=== PATIENT | male | born 1930 | race Caucasian/White ===

== ENCOUNTER → 2016-11-26 | Outpatient (CLI) | payer MEDICARE, OTHER | END | disposition home or self-care (01) | LOC: CVU 13:03 | PROVIDERS: ATTEND Physician Assistant Medical | DX: I82.431 Acute embolism and thrombosis of right popliteal vein (principal); I82.4Z1 Acute embolism and thrombosis of unspecified deep veins of right distal lower extremity; I87.8 Other specified disorders of veins | CPT/HCPCS: 93970 ==

== ENCOUNTER → 2016-12-30 | Outpatient (CLI) | payer MEDICARE, OTHER | END | disposition home or self-care (01) | LOC: WOUND 09:15 | PROVIDERS: ATTEND Internal Medicine | DX: I89.0 Lymphedema, not elsewhere classified (principal); I25.10 Atherosclerotic heart disease of native coronary artery without angina pectoris; I10 Essential (primary) hypertension; E78.5 Hyperlipidemia, unspecified; Z87.891 Personal history of nicotine dependence | CPT/HCPCS: G0463; WOU0463 ==

== ENCOUNTER → 2017-01-19 | Outpatient (CLI) | payer MEDICARE, OTHER | END | disposition home or self-care (01) | LOC: CVU 15:28 | PROVIDERS: ATTEND Internal Medicine | DX: I70.293 Other atherosclerosis of native arteries of extremities, bilateral legs (principal); I89.0 Lymphedema, not elsewhere classified; I10 Essential (primary) hypertension; I25.2 Old myocardial infarction; Z87.891 Personal history of nicotine dependence | CPT/HCPCS: 93922; 93925 ==

== ENCOUNTER 2017-05-06 10:46 | Observation (INO) | payer MEDICARE, OTHER ==
[2017-05-05 13:23] LABS: HEMATOCRIT 43.1 % (39.2-51.8); HEMOGLOBIN 14.5 g/dL (13.7-18.0); WHITE BLOOD COUNT 10.9 x10^3/uL (3.4-10)
[2017-05-05 13:35] LABS: BLOOD UREA NITROGEN 19 mg/dL (7-18)
[2017-05-05 14:41] VITALS: BP 156/75
[~2017-05-06] VITALS: Ht 182.9 cm; Wt 88.2 kg
[~2017-05-06 10:46] MED LIST: ASPI-496 PO; ATOR10TA PO; CARV3.122 PO; CYAN25003 PO; DOCU-180 PO; FURO20TA3 PO; POTA10TA31 PO; VALS80TA3 PO
[2017-05-06] MEDS: SODIUM CHLORIDE 0.9% 1,000 ML IV SCH ×2 (11:06→20:57)
[2017-05-06] MEDS ORDERED: VANCOMYCIN PMX 1GM/200ML 200 ML IVPB SCH (11:30)
[2017-05-06] MEDS ORDERED: VANCOMYCIN PMX 1GM/200ML 200 ML ONE (13:05)
[2017-05-06] MEDS ORDERED: VANCOMYCIN 500 MG ONE (13:05)
[2017-05-06] MEDS ORDERED: LIDOCAINE 2%, 20ML ONE (13:05)
[2017-05-06] MEDS ORDERED: MIDAZOLAM 1 MG/ML, 5ML ONE (13:05)
[2017-05-06] MEDS ORDERED: FENTANYL PF 100 MCG/2ML ONE (13:05)
[2017-05-06 14:30] VITALS: BP 159/71
[2017-05-06] MEDS ORDERED: ONDANSETRON 2MG/ML, 2ML IV PRN (14:30)
[2017-05-06] MEDS ORDERED: ACETAMINOPHEN 325 MG TABLET PO PRN (14:30)
[2017-05-06 16:25] VITALS: BP 159/71
[2017-05-06 19:47] VITALS: BP 116/72
[2017-05-06] MEDS: FUROSEMIDE 20 MG TABLET PO SCH (20:46)
[2017-05-06] MEDS: POTASSIUM CHLORIDE 10 MEQ TABLET.ER PO SCH (20:46)
[2017-05-06] MEDS: SODIUM CHLORIDE FLUSH 10ML SYR IVF SCH (20:47)
[2017-05-06] MEDS ORDERED: ATORVASTATIN 10 MG TABLET PO SCH (21:00)
[2017-05-07] MEDS ORDERED: VANCOMYCIN PMX 1GM/200ML 200 ML IVPB ONE (01:00)
[2017-05-07 01:33] VITALS: BP 131/87
[2017-05-07] MEDS: SODIUM CHLORIDE 0.9% 1,000 ML IV SCH ×2 (02:11→07:56)
[2017-05-07 07:22] VITALS: BP 153/60
[2017-05-07] MEDS: SODIUM CHLORIDE FLUSH 10ML SYR IVF SCH (07:57)
[2017-05-07] MEDS: POTASSIUM CHLORIDE 10 MEQ TABLET.ER PO SCH (07:57)
[2017-05-07] MEDS: FUROSEMIDE 20 MG TABLET PO SCH (07:57)
[2017-05-07] MEDS ORDERED: CARV3.122 PO (07:58)
[2017-05-07] MEDS ORDERED: CYANOCOBALAMIN 1,000 MCG TABLET PO SCH (09:00)
[2017-05-07] MEDS ORDERED: VALSARTAN 80 MG TABLET PO SCH (09:00)
[2017-05-07] MEDS ORDERED: ASPIRIN 81 MG TABLET EC PO SCH (09:00)
[2017-05-07] MEDS ORDERED: CARVEDILOL 3.125 MG TABLET PO SCH (09:00)
[2017-05-07] MEDS ORDERED: PNEUMOCOCCAL 23 VACCINE IM-VACC ONE (09:30)
[2017-05-07] MEDS ORDERED: FLU VACC QS2017-18 (36MOS+) UP/PF 0.5 ML IM-VACC ONE (09:30)
== END 2017-05-07 09:58 | disposition home or self-care (01) ==
LOC: CACL 10:46 → ORIP 14:29 → 5SO 16:00
PROVIDERS: ADMIT Internal Medicine Cardiovascular Disease; ATTEND Internal Medicine Cardiovascular Disease
DX: I49.5 Sick sinus syndrome (principal); R00.1 Bradycardia, unspecified; I25.10 Atherosclerotic heart disease of native coronary artery without angina pectoris; I42.9 Cardiomyopathy, unspecified; R60.9 Edema, unspecified; I10 Essential (primary) hypertension; E78.2 Mixed hyperlipidemia; I82.409 Acute embolism and thrombosis of unspecified deep veins of unspecified lower extremity; I73.9 Peripheral vascular disease, unspecified; Z23 Encounter for immunization
CPT/HCPCS: 33208; 36415; 71010; 71020; 80048; 85025; 85610; 90471; 90472; 90686; 90732; 96365; 99156; 99157; C1779; C1785; C1892; G0008; G0009; G0378; J2250; J3010; J3370; J3490

== ENCOUNTER → 2017-05-14 | Outpatient (CLI) | payer MEDICARE, OTHER | END | disposition home or self-care (01) | LOC: CFH 11:09 | PROVIDERS: ATTEND Physician Assistant Medical | DX: I10 Essential (primary) hypertension (principal); Z95.0 Presence of cardiac pacemaker | CPT/HCPCS: 71020 ==